=== PATIENT | male | born 1960 | race Caucasian/White ===

== ENCOUNTER → 2017-01-22 | Outpatient (CLI) | payer OTHER ==
[2017-01-22 10:27] LABS: BASO # 0.1 10*3/uL (0.0-0.1); BASO % 0.5 % (0.0-1.0); EOS # 0.1 10*3/uL (0.0-0.4); EOS % 0.9 % (1.0-4.0); HEMATOCRIT 51.9 % (42.0-52.0); IG # 0.1 10*3/uL (0.0-0.1); LYMPH # 1.9 10*3/uL (1.3-4.4); LYMPH % 19.8 % (27.0-41.0); MEAN CELL VOLUME 87.4 fl (80.0-94.0); MEAN CORPUSCULAR HGB 28.6 pg (27.0-31.0); MEAN CORPUSCULAR HGB CONC 32.8 g/dl (33.0-37.0); MEAN PLATELET VOLUME 11.3 fl (9.6-12.3); MONO % 10.7 % (3.0-9.0); NEUT # 6.4 10*3/uL (2.3-7.9); NEUT % 67.4 % (47.0-73.0); PLATELET COUNT AUTOMATED 253 10*3/uL (130-400); RED BLOOD COUNT 5.94 10*6/uL (4.50-5.90); RED CELL DISTRI WIDTH 12.5 % (0-14.5); WHITE BLOOD COUNT 9.5 10*3/uL (4.8-10.8)
[2017-01-22 11:08] LABS: ALBUMIN 3.6 gm/dl (3.1-4.5); BILIRUBIN, TOTAL 0.4 mg/dl (0.2-1.0); BUN 13 mg/dl (7-24); CARBON DIOXIDE 31 mmol/L (21-32); CHLORIDE 94 mmol/L (98-107); EST GLOM FILT AFRICAN AMERICAN > 60 ml/min; GLUCOSE 403 mg/dL (65-99); POTASSIUM 4.3 mmol/L (3.5-5.1); SGOT/AST 18 IU/L (3-35); SGPT/ALT 37 U/L (12-78); SODIUM 132 mmol/L (136-145); TOTAL PROTEIN 8.1 gm/dL (6.4-8.2); TRIGLYCERIDES 499 mg/dl (<150)
[2017-01-22 11:22] LABS: ALKALINE PHOSPHATASE 166 U/L (45-117); CHOLESTEROL 541 mg/dL (<200); HDL CHOLESTEROL 44 mg/dl (40-60)
[2017-01-22 13:11] LABS: HEMOGLOBIN A1c > 16.0 % (4.8-5.6)
== END | disposition home or self-care (01) ==
LOC: LAB 09:45
PROVIDERS: Family Medicine
DX: E11.9 Type 2 diabetes mellitus without complications (principal); E55.9 Vitamin D deficiency, unspecified; E78.5 Hyperlipidemia, unspecified

== ENCOUNTER → 2017-02-14 | Outpatient (CLI) | payer OTHER | END | disposition home or self-care (01) | LOC: CARD 10:30 | DX: I25.2 Old myocardial infarction (principal); R60.0 Localized edema; R07.9 Chest pain, unspecified; I34.0 Nonrheumatic mitral (valve) insufficiency; I07.1 Rheumatic tricuspid insufficiency ==

== ENCOUNTER → 2017-03-19 | Outpatient (CLI) | payer OTHER ==
--- NOTE | ~2017-03-19 | PF ---
[place], [place] PULMONARY FUNCTION TEST [id number] UNIT #: [id number] ROOM: DOCTOR: ANDRADE ROBIN MD,BEVERLY BIRTHDATE: [birth year] DOS: 03/19/2017 ORDERED BY: Dennise Saeed DO HISTORY: The patient was recorded as a 56-year-old male, height is 70 inches, weight is 210 pounds. The patient was reported diagnosis of COPD. Symptoms of dyspnea with severe exertion with productive cough and frequent wheezing was reported. The patient was noted with history of tobacco use, 1.5 packs of cigarettes per day for the past 36 years. SPIROMETRY: The FVC was recorded 3.74 liters as 76% predicted value, mildly decreased with minimal improvement occurred post-bronchodilator test, did not meet the criteria for the ATS improvement. FEV1 was noted 2.5 liters as 59% of predicted value, moderately decreased for the patient. Minimal improvement occurred post-bronchodilator test does not meet the criteria. He has improvement of significant reversibility after bronchodilators. Ratio of FEV1/FVC was recorded as 60%. The patient's lung volumes, thoracic gas volume recorded 109%, residual 136%, total lung capacity 86%. RV/TLC ratio was noted at 161%. The lung volumes suggestive of moderate air trapping secondary to obstructive lung disease. The patient's lung diffusion recorded 92%. The patient's airway resistance and passive conductance were noted abnormal with partial improvement occurred post-bronchodilator test. FINAL IMPRESSION: The tests were noted with finding consistent with moderate COPD for this patient as well. Clinical correlation would be advised. BEVERLY ZAFAR MD CM:PFREPORT:PULMONARY FUNCTION TEST [id number] BEVERLY ROBIN MD
== END | disposition home or self-care (01) ==
LOC: CP 08:31
DX: J44.9 Chronic obstructive pulmonary disease, unspecified (principal)

== ENCOUNTER → 2017-10-30 | Outpatient (CLI) | payer OTHER ==
[2017-10-30 10:12] LABS: BILIRUBIN 1+ (NEGATIVE); BLOOD NEGATIVE (NEGATIVE); CLARITY SL CLOUDY (CLEAR); COLOR YELLOW (YELLOW); GLUCOSE NEGATIVE (NEGATIVE); KETONE 1+ (NEGATIVE); LEUKO ESTERASE NEGATIVE (NEGATIVE); NITRITE NEGATIVE (NEGATIVE); PH 5.5 (5.0-9.0); SPECIFIC GRAVITY >= 1.030 (1.005-1.030); UROBILINOGEN 0.2 E.U./dl (0.2-1.0)
[2017-10-30 10:18] LABS: BACTERIA 1+
[2017-10-30 10:44] LABS: ALBUMIN 3.6 gm/dl (3.1-4.5); ALKALINE PHOSPHATASE 78 U/L (45-117); BILIRUBIN, DIRECT < 0.1 mg/dL (0.0-0.2); BUN 12 mg/dl (7-24); CHLORIDE 106 mmol/L (98-107); CHOLESTEROL 293 mg/dL (<200); CREATININE 0.83 mg/dL (0.70-1.30); HDL CHOLESTEROL 46 mg/dl (40-60); IRON 31 ug/dL (65-175); LDL CHOLESTEROL 217 mg/dL (9-159); POTASSIUM 3.8 mmol/L (3.5-5.1); SGOT/AST 14 IU/L (3-35); SGPT/ALT 28 U/L (12-78); SODIUM 138 mmol/L (136-145); TOTAL IRON BINDING CAPACITY 334 ug/dl (250-450); TOTAL PROTEIN 7.2 gm/dL (6.4-8.2); TRIGLYCERIDES 148 mg/dl (<150); VLDL CHOLESTEROL 30 mg/dL (6-40)
[2017-10-30 11:25] LABS: TESTOSTERONE, TOTAL 257 ng/dL (241-827); VITAMIN D, 25-HYDROXY 53.6 ng/mL (30-100)
== END | disposition home or self-care (01) ==
LOC: LAB 09:44
PROVIDERS: Internal Medicine
DX: E11.40 Type 2 diabetes mellitus with diabetic neuropathy, unspecified (principal); E11.65 Type 2 diabetes mellitus with hyperglycemia; E55.9 Vitamin D deficiency, unspecified; E78.5 Hyperlipidemia, unspecified; N40.0 Benign prostatic hyperplasia without lower urinary tract symptoms

== ENCOUNTER → 2018-02-05 | Outpatient (CLI) | payer OTHER ==
[2018-02-05 10:38] LABS: BILIRUBIN NEGATIVE (NEGATIVE); BLOOD NEGATIVE (NEGATIVE); CLARITY SL CLOUDY (CLEAR); COLOR YELLOW (YELLOW); GLUCOSE 3+ (NEGATIVE); KETONE 1+ (NEGATIVE); LEUKO ESTERASE NEGATIVE (NEGATIVE); NITRITE NEGATIVE (NEGATIVE); PH 5.5 (5.0-9.0); SPECIFIC GRAVITY >= 1.030 (1.005-1.030); UROBILINOGEN 0.2 E.U./dl (0.2-1.0)
[2018-02-05 10:45] LABS: MUCOUS 2+
[2018-02-05 11:03] LABS: BUN 12 mg/dl (7-24); CHLORIDE 105 mmol/L (98-107); CHOLESTEROL 183 mg/dL (<200); CREATININE 0.77 mg/dL (0.70-1.30); HDL CHOLESTEROL 39 mg/dl (40-60); LDL CHOLESTEROL 126 mg/dL (9-159); POTASSIUM 4.1 mmol/L (3.5-5.1); SODIUM 140 mmol/L (136-145); TRIGLYCERIDES 90 mg/dl (<150); VLDL CHOLESTEROL 18 mg/dL (6-40)
[2018-02-05 12:04] LABS: VITAMIN D, 25-HYDROXY 73.1 ng/mL (30-100)
== END | disposition home or self-care (01) ==
LOC: LAB 09:58
PROVIDERS: Internal Medicine
DX: E78.5 Hyperlipidemia, unspecified (principal); E11.65 Type 2 diabetes mellitus with hyperglycemia; E55.9 Vitamin D deficiency, unspecified; E11.40 Type 2 diabetes mellitus with diabetic neuropathy, unspecified

== ENCOUNTER 2018-03-18 08:02 | Emergency (ER) | payer OTHER ==
[~2018-03-18] VITALS: Ht 177.8 cm; Wt 89.4 kg
[2018-03-18 09:01] LABS: BUN 11 mg/dl (7-24); CHLORIDE 100 mmol/L (98-107); CREATININE 0.81 mg/dL (0.70-1.30); POTASSIUM 4.4 mmol/L (3.5-5.1); SODIUM 135 mmol/L (136-145)
[2018-03-18 09:04] LABS: TROPONIN I < 0.015 ng/ml (<0.045)
== END 2018-03-18 09:20 | disposition home or self-care (01) ==
LOC: ED 08:02
PROVIDERS: Emergency Medicine
DX: M54.6 Pain in thoracic spine (principal); X50.1XXA Overexertion from prolonged static or awkward postures, initial encounter; Y93.89 Activity, other specified; Y92.69 Other specified industrial and construction area as the place of occurrence of the external cause; Y99.9 Unspecified external cause status

== ENCOUNTER 2018-04-21 11:22 | Emergency (ER) | payer OTHER ==
[~2018-04-21] VITALS: Ht 175.2 cm; Wt 89.4 kg
== END 2018-04-21 12:37 | disposition home or self-care (01) ==
LOC: ED 11:22
DX: S99.921A Unspecified injury of right foot, initial encounter (principal); F17.200 Nicotine dependence, unspecified, uncomplicated; W22.8XXA Striking against or struck by other objects, initial encounter; Y93.89 Activity, other specified; Y92.89 Other specified places as the place of occurrence of the external cause; Y99.8 Other external cause status

== ENCOUNTER → 2018-05-27 | Outpatient (CLI) | payer OTHER ==
[2018-05-27 11:09] LABS: BILIRUBIN NEGATIVE (NEGATIVE); BLOOD NEGATIVE (NEGATIVE); CLARITY CLEAR (CLEAR); COLOR YELLOW (YELLOW); GLUCOSE NEGATIVE (NEGATIVE); KETONE NEGATIVE (NEGATIVE); LEUKO ESTERASE NEGATIVE (NEGATIVE); NITRITE NEGATIVE (NEGATIVE); PH 5.5 (5.0-9.0); UROBILINOGEN 0.2 E.U./dl (0.2-1.0)
[2018-05-27 11:25] LABS: EPITHELIAL CELLS 0-2; RBC 0-2 rbc/hpf (0-2)
[2018-05-27 11:29] LABS: ALBUMIN 3.3 gm/dl (3.1-4.5); ALKALINE PHOSPHATASE 94 U/L (45-117); BILIRUBIN, DIRECT < 0.1 mg/dL (0.0-0.2); BUN 9 mg/dl (7-24); CHLORIDE 105 mmol/L (98-107); CHOLESTEROL 406 mg/dL (<200); CREATININE 0.74 mg/dL (0.70-1.30); HDL CHOLESTEROL 39 mg/dl (40-60); LDL CHOLESTEROL 319 mg/dL (9-159); POTASSIUM 4.5 mmol/L (3.5-5.1); SGOT/AST 15 IU/L (3-35); SGPT/ALT 27 U/L (12-78); SODIUM 138 mmol/L (136-145); TOTAL PROTEIN 6.6 gm/dL (6.4-8.2); TRIGLYCERIDES 239 mg/dl (<150); VLDL CHOLESTEROL 48 mg/dL (6-40)
[2018-05-27 12:11] LABS: VITAMIN D, 25-HYDROXY 25.3 ng/mL (30-100)
== END | disposition home or self-care (01) ==
LOC: LAB 10:01
PROVIDERS: Internal Medicine
DX: E11.65 Type 2 diabetes mellitus with hyperglycemia (principal); E29.1 Testicular hypofunction; E55.9 Vitamin D deficiency, unspecified

== ENCOUNTER → 2018-10-01 | Outpatient (CLI) | payer OTHER ==
[~2018-10-01] MED LIST: GLIMEPIRIDE4 M1 PO; METFORMIN HYD1000 MG PO; VICTOZA 3-PAK6 MG/ML SC
[2018-10-01 11:58] LABS: BILIRUBIN NEGATIVE (NEGATIVE); BLOOD NEGATIVE (NEGATIVE); CLARITY SL CLOUDY (CLEAR); COLOR YELLOW (YELLOW); GLUCOSE 3+ (NEGATIVE); KETONE NEGATIVE (NEGATIVE); LEUKO ESTERASE NEGATIVE (NEGATIVE); NITRITE NEGATIVE (NEGATIVE); PH 5.5 (5.0-9.0); SPECIFIC GRAVITY 1.025 (1.005-1.030); UROBILINOGEN 0.2 E.U./dl (0.2-1.0)
[2018-10-01 12:13] LABS: BACTERIA TRACE; MUCOUS 1+
[2018-10-01 12:30] LABS: ALBUMIN 3.4 gm/dl (3.1-4.5); ALKALINE PHOSPHATASE 94 U/L (45-117); BILIRUBIN, DIRECT 0.1 mg/dL (0.0-0.2); BUN 11 mg/dl (7-24); CHLORIDE 104 mmol/L (98-107); CHOLESTEROL 156 mg/dL (<200); CREATININE 0.76 mg/dL (0.70-1.30); HDL CHOLESTEROL 37 mg/dl (40-60); LDL CHOLESTEROL 86 mg/dL (9-159); POTASSIUM 4.2 mmol/L (3.5-5.1); SGOT/AST 29 IU/L (3-35); SGPT/ALT 41 U/L (12-78); SODIUM 136 mmol/L (136-145); TOTAL PROTEIN 7.1 gm/dL (6.4-8.2); TRIGLYCERIDES 163 mg/dl (<150); VLDL CHOLESTEROL 33 mg/dL (6-40)
[2018-10-01 13:08] LABS: VITAMIN D, 25-HYDROXY 44.6 ng/mL (30-100)
== END | disposition home or self-care (01) ==
LOC: LAB 11:31
PROVIDERS: Internal Medicine
DX: E11.40 Type 2 diabetes mellitus with diabetic neuropathy, unspecified (principal); E11.65 Type 2 diabetes mellitus with hyperglycemia; E55.9 Vitamin D deficiency, unspecified; E78.5 Hyperlipidemia, unspecified

== ENCOUNTER → 2019-01-07 | Outpatient (CLI) | payer OTHER ==
[2019-01-07 10:51] LABS: BILIRUBIN NEGATIVE (NEGATIVE); BLOOD NEGATIVE (NEGATIVE); CLARITY SL CLOUDY (CLEAR); COLOR YELLOW (YELLOW); GLUCOSE 3+ (NEGATIVE); KETONE NEGATIVE (NEGATIVE); LEUKO ESTERASE NEGATIVE (NEGATIVE); NITRITE NEGATIVE (NEGATIVE); PH 5.5 (5.0-9.0); UROBILINOGEN 0.2 E.U./dl (0.2-1.0)
[2019-01-07 11:20] LABS: ALBUMIN 3.5 gm/dl (3.1-4.5); ALKALINE PHOSPHATASE 85 U/L (45-117); BILIRUBIN, DIRECT 0.1 mg/dL (0.0-0.2); BUN 13 mg/dl (7-24); CHLORIDE 105 mmol/L (98-107); CHOLESTEROL 113 mg/dL (<200); HDL CHOLESTEROL 38 mg/dl (40-60); LDL CHOLESTEROL 59 mg/dL (9-159); POTASSIUM 4.2 mmol/L (3.5-5.1); SGOT/AST 43 IU/L (3-35); SGPT/ALT 86 U/L (12-78); SODIUM 139 mmol/L (136-145); TOTAL PROTEIN 7.2 gm/dL (6.4-8.2); TRIGLYCERIDES 80 mg/dl (<150); VLDL CHOLESTEROL 16 mg/dL (6-40)
[2019-01-07 13:19] LABS: VITAMIN D, 25-HYDROXY 58.9 ng/mL (30-100)
[2019-01-07 13:27] LABS: BACTERIA 2+; COARSE GRANULAR CAST 20-30; EPITHELIAL CELLS 30-40; WBC 16-20 wbc/hpf (0-5)
== END | disposition home or self-care (01) ==
LOC: LAB 10:21
PROVIDERS: Internal Medicine
DX: E11.65 Type 2 diabetes mellitus with hyperglycemia (principal); E78.5 Hyperlipidemia, unspecified; E55.9 Vitamin D deficiency, unspecified

== ENCOUNTER → 2019-06-17 | Outpatient (CLI) | payer OTHER ==
[2019-06-17 11:30] LABS: BILIRUBIN NEGATIVE (NEGATIVE); BLOOD NEGATIVE (NEGATIVE); CLARITY CLEAR (CLEAR); COLOR YELLOW (YELLOW); GLUCOSE 3+ (NEGATIVE); KETONE NEGATIVE (NEGATIVE); LEUKO ESTERASE NEGATIVE (NEGATIVE); NITRITE NEGATIVE (NEGATIVE); SPECIFIC GRAVITY 1.015 (1.005-1.030); UROBILINOGEN 0.2 E.U./dl (0.2-1.0)
[2019-06-17 11:59] LABS: CHLORIDE 108 mmol/L (98-107); SODIUM 139 mmol/L (136-145)
[2019-06-17 12:19] LABS: ALBUMIN 3.5 gm/dl (3.1-4.5); ALKALINE PHOSPHATASE 83 U/L (45-117); BILIRUBIN, DIRECT < 0.1 mg/dL (0.0-0.2); BUN 10 mg/dl (7-24); CHOLESTEROL 140 mg/dL (<200); CREATININE 0.77 mg/dL (0.70-1.30); HDL CHOLESTEROL 41 mg/dl (40-60); LDL CHOLESTEROL 80 mg/dL (9-159); SGOT/AST 25 IU/L (3-35); SGPT/ALT 43 U/L (12-78); TOTAL PROTEIN 6.6 gm/dL (6.4-8.2); TRIGLYCERIDES 95 mg/dl (<150); VLDL CHOLESTEROL 19 mg/dL (6-40)
[2019-06-17 12:30] LABS: VITAMIN D, 25-HYDROXY 44.7 ng/mL (30-100)
== END | disposition home or self-care (01) ==
LOC: LAB 10:50
PROVIDERS: Internal Medicine
DX: E11.40 Type 2 diabetes mellitus with diabetic neuropathy, unspecified (principal); E11.65 Type 2 diabetes mellitus with hyperglycemia; E78.5 Hyperlipidemia, unspecified; E55.9 Vitamin D deficiency, unspecified

== ENCOUNTER → 2019-08-01 | Outpatient (CLI) | payer OTHER | END | disposition home or self-care (01) | LOC: US 09:30 | DX: N40.0 Benign prostatic hyperplasia without lower urinary tract symptoms (principal); R94.5 Abnormal results of liver function studies; M19.012 Primary osteoarthritis, left shoulder; I10 Essential (primary) hypertension; E11.9 Type 2 diabetes mellitus without complications; E78.5 Hyperlipidemia, unspecified ==

== ENCOUNTER → 2019-11-11 | Outpatient (CLI) | payer OTHER ==
[2019-11-11 14:05] LABS: ALBUMIN 3.9 gm/dl (3.1-4.5); ALKALINE PHOSPHATASE 83 U/L (45-117); BILIRUBIN, DIRECT < 0.1 mg/dL (0.0-0.2); BUN 12 mg/dl (7-24); CHLORIDE 108 mmol/L (98-107); CHOLESTEROL 183 mg/dL (<200); CREATININE 0.89 mg/dL (0.70-1.30); HDL CHOLESTEROL 44 mg/dl (40-60); LDL CHOLESTEROL 105 mg/dL (9-159); POTASSIUM 4.3 mmol/L (3.5-5.1); SGOT/AST 17 IU/L (3-35); SGPT/ALT 35 U/L (12-78); SODIUM 139 mmol/L (136-145); TRIGLYCERIDES 169 mg/dl (<150); VLDL CHOLESTEROL 34 mg/dL (6-40)
[2019-11-11 14:20] LABS: BACTERIA TRACE; BILIRUBIN NEGATIVE (NEGATIVE); BLOOD NEGATIVE (NEGATIVE); CLARITY CLEAR (CLEAR); COLOR YELLOW (YELLOW); EPITHELIAL CELLS 0-2; GLUCOSE 3+ (NEGATIVE); KETONE 1+ (NEGATIVE); LEUKO ESTERASE NEGATIVE (NEGATIVE); MUCOUS 1+; NITRITE NEGATIVE (NEGATIVE); UROBILINOGEN 0.2 E.U./dl (0.2-1.0)
[2019-11-11 15:49] LABS: VITAMIN D, 25-HYDROXY 38.7 ng/mL (30-100)
== END | disposition home or self-care (01) ==
LOC: LAB 13:12
PROVIDERS: Internal Medicine
DX: N40.0 Benign prostatic hyperplasia without lower urinary tract symptoms (principal); E29.1 Testicular hypofunction; E11.65 Type 2 diabetes mellitus with hyperglycemia; E55.9 Vitamin D deficiency, unspecified; E11.40 Type 2 diabetes mellitus with diabetic neuropathy, unspecified

== ENCOUNTER → 2020-04-01 | Outpatient (CLI) | payer OTHER ==
[2020-04-01 11:11] LABS: ALBUMIN 3.4 gm/dl (3.1-4.5); ALKALINE PHOSPHATASE 75 U/L (45-117); BILIRUBIN, DIRECT < 0.1 mg/dL (0.0-0.2); BUN 10 mg/dl (7-24); CHLORIDE 109 mmol/L (98-107); CHOLESTEROL 202 mg/dL (<200); CREATININE 0.83 mg/dL (0.70-1.30); HDL CHOLESTEROL 41 mg/dl (40-60); LDL CHOLESTEROL 142 mg/dL (9-159); POTASSIUM 4.4 mmol/L (3.5-5.1); SGOT/AST 18 IU/L (3-35); SGPT/ALT 27 U/L (12-78); SODIUM 140 mmol/L (136-145); TOTAL PROTEIN 6.6 gm/dL (6.4-8.2); TRIGLYCERIDES 97 mg/dl (<150); VLDL CHOLESTEROL 19 mg/dL (6-40)
[2020-04-01 11:52] LABS: BILIRUBIN NEGATIVE (NEGATIVE); BLOOD NEGATIVE (NEGATIVE); CLARITY CLEAR (CLEAR); COLOR YELLOW (YELLOW); GLUCOSE 3+ (NEGATIVE); KETONE NEGATIVE (NEGATIVE); SPECIFIC GRAVITY 1.025 (1.005-1.030)
[2020-04-01 11:53] LABS: BACTERIA TRACE; LEUKO ESTERASE NEGATIVE (NEGATIVE); MUCOUS TRACE; NITRITE NEGATIVE (NEGATIVE); UROBILINOGEN 0.2 E.U./dl (0.2-1.0)
[2020-04-01 12:00] LABS: VITAMIN D, 25-HYDROXY 51.2 ng/mL (30-100)
== END | disposition home or self-care (01) ==
LOC: LAB 10:06
PROVIDERS: Internal Medicine
DX: E11.65 Type 2 diabetes mellitus with hyperglycemia (principal); E78.5 Hyperlipidemia, unspecified; E55.9 Vitamin D deficiency, unspecified; E11.40 Type 2 diabetes mellitus with diabetic neuropathy, unspecified

== ENCOUNTER 2020-06-14 10:53 | Inpatient (IN) | payer OTHER ==
[~2020-06-14] VITALS: Ht 172.7 cm; Wt 86.1 kg
--- NOTE | 2020-06-14 11:16 | NUR ---
PATIENT STATES THAT HE TOOK TYLENOL WITH CODEINE AT 0700, AND ALL THROUGH THE NIGHT.
[2020-06-14 11:21] VITALS: BP 123/76
--- NOTE | 2020-06-14 11:56 | NUR ---
PT TRANSPORTED TO CT.
--- NOTE | 2020-06-14 12:14 | NUR ---
PT BACK TO ROOM FROM CT.
--- NOTE | 2020-06-14 12:39 | NUR ---
PATIENT STATES THAT PAIN MEDICATION HAS BEEN EFFECTIVE, RESTING COMFORTABLY IN BED WITH NO COMPLAINTS. WILL CONTINUIE TO MONITOR.
--- NOTE | 2020-06-14 13:05 | NUR ---
PATIENT PROVIDED WITH URINAL.
[2020-06-14] MEDS ORDERED: NORCO 5-325 TA1 EACH PO (13:39)
--- NOTE | 2020-06-14 13:41 | NUR ---
PATIENT PROVIDED WITH LEFT KNEE IMMOBILIZER AND CRUTCHES.
--- NOTE | 2020-06-14 17:20 | NUR ---
ATTEMPTED TO CALL REPORT. DID NOT ANSWER.
[2020-06-14 18:25] VITALS: BP 127/73
--- NOTE | 2020-06-14 18:25 | NUR ---
Time: 1624 A 59 year old MALE admitted to under services of GURJIT BEY DO. Pt. arrived via ambulance from ER. Chief complaint: INABILITY TO AMBULATE.. ADY ZARATE
[2020-06-14] MEDS ORDERED: PAROXETINE10 MG PO (19:05)
[2020-06-14] MEDS ORDERED: ROSUVASTATIN CA40 MG PO (19:06)
[2020-06-14] MEDS ORDERED: CHILDREN'S CLEA10 MG PO (19:09)
[2020-06-14] MEDS ORDERED: LISINOPRIL2.5 MG PO (19:10)
[2020-06-14] MEDS ORDERED: ASPIRIN CHEWABL81 MG PO (19:10)
[2020-06-14 20:00] VITALS: BP 114/65
[2020-06-14] MEDS ORDERED: COQ-10100 MG PO (20:10)
[2020-06-14] MEDS ORDERED: JARDIANCE25 MG PO (20:11)
[2020-06-14] MEDS ORDERED: ZETIA10 MG PO (20:13)
--- NOTE | 2020-06-14 20:31 | NUR ---
Pt instructed on incentive spirometer. Encouraged 10 breaths every hour.
[2020-06-14] MEDS ORDERED: SUPER-D3+ SOFT1 EACH PO (20:34)
[2020-06-14] MEDS ORDERED: TOPROL XL25 MG PO (20:35)
[2020-06-14] MEDS ORDERED: OZEMPIC1 MG/0.75 SQ (20:35)
[2020-06-14] MEDS ORDERED: FUROSEMIDE20 M1 PO (20:36)
[2020-06-14] MEDS ORDERED: POTASSIUM CHLO10 MEQ PO (20:37)
[2020-06-14] MEDS ORDERED: FLUTICASONE PRO15 G1 T (20:38)
[2020-06-14] MEDS ORDERED: VENT7GM INH (20:38)
--- NOTE | 2020-06-14 20:40 | NUR ---
CALLED DR. MANCIA MADE AWARE MEDICATION NEED ORDERED.
--- NOTE | 2020-06-14 21:43 | NUR ---
RESTING IN BED. BSG-[id number], SEE EMAR. DENIES PAIN AT THIS TIME. EXPLAINED INCENTIVE SPIROMETER, VOICED USING. CALL LIGHT IN REACH. SEE SHIFT ASSESSMENT.
[2020-06-14] MEDS ORDERED: ADDERALL 10 MG10 MG PO (22:57)
--- NOTE | 2020-06-14 22:58 | NUR ---
SLEEPING IN BED. RESP-EASY AND REGULAR. CALL LIGHT IN REACH.
[2020-06-15] VITALS: BP 126/77
--- NOTE | 2020-06-15 00:13 | NUR ---
MEDICATED WITH NORCO PO PER PRN ORDER, SEE EMAR. FOR C/O R&L LOWER CHEST RIB AREA PAIN, MOSTLY ON LEFT SIDE. RATES PAIN 5 ON PAIN SCALE 0-10. PT STATES HE MOVED THE WRONG WAY. CALL LIGHT IN REACH.
--- NOTE | 2020-06-15 01:10 | NUR ---
PT RESTING IN BED. RESP-EASY AND REGULAR. STATES MEDICATION EFFECTIVE. CALL LIGHT IN REACH.
--- NOTE | 2020-06-15 04:13 | NUR ---
PT C/O LEFT KNEE AND LEFT CHEST/RIB AREA PAIN, RATES PAIN 2 ON PAIN SCALE 0-10. MEDICATED WITH NORCO PO PER PRN ORDER, SEE EMAR. CALL LIGHT IN REACH.
--- NOTE | 2020-06-15 05:00 | NUR ---
PT RESTING IN BED WITH EYES CLOSED. RESP-EASY AND REGULAR. MEDICATION SEEMS TO BE EFFECTIVE. CALL LIGHT IN REACH.
[2020-06-15 06:49] LABS: HEMATOCRIT 45.9 % (42.0-52.0); MEAN CORPUSCULAR HGB 29.7 pg (27.0-31.0); MEAN CORPUSCULAR HGB CONC 32.2 g/dl (33.0-37.0); MEAN PLATELET VOLUME 10.5 fl (9.6-12.3); PLATELET COUNT AUTOMATED 159 10*3/uL (130-400); RED BLOOD COUNT 4.99 10*6/uL (4.50-5.90); RED CELL DISTRI WIDTH 13.4 % (0-14.5); WHITE BLOOD COUNT 10.1 10*3/uL (4.8-10.8)
[2020-06-15 06:59] LABS: ALBUMIN 2.8 gm/dl (3.1-4.5); ALKALINE PHOSPHATASE 73 U/L (45-117); BUN 13 mg/dl (7-24); CHLORIDE 105 mmol/L (98-107); CREATININE 0.81 mg/dL (0.70-1.30); FREE T4 1.13 ng/dl (0.76-1.46); POTASSIUM 3.9 mmol/L (3.5-5.1); SGOT/AST 18 IU/L (3-35); SGPT/ALT 25 U/L (12-78); SODIUM 135 mmol/L (136-145); TOTAL PROTEIN 6.5 gm/dL (6.4-8.2)
[2020-06-15 07:31] LABS: BASOPHILS 3 % (0-1); PLATELET SUFFICIENCY NORMAL (NORMAL); TOTAL CELLS COUNTED 100 #CELLS
--- NOTE | 2020-06-15 07:31 | NUR ---
Shift chart check completed.
--- NOTE | 2020-06-15 07:41 | NUR ---
PHYSICAL THERAPY Screen and PT eval received will follow thank you Latrice Ortiz PT
[2020-06-15 08:00] VITALS: BP 121/77
--- NOTE | 2020-06-15 08:02 | NUR ---
Occupational therapy order and nursing screen received. Will follow up with patient for completion of an OT evaluation. Thank you. Mer Batista, OTR/L
--- NOTE | 2020-06-15 10:59 | NUR ---
PT ASSESSED FOR HOME OXYGEN. PT DID NOT QUALIFY PT AT REST SPO2 99% RA, HR 75, RR 16, B/P 121/77 PT AMBULATED SPO2 93-95% RA PT AT REST SPO2 98% RA, HR 72, RR 16, B/P 146/82 NOTIFIED AND RN NOTIFIED
--- NOTE | 2020-06-15 11:04 | NUR ---
In to see patient to discuss options of rehab facilities that are in network with his [place] [employer] insurance. [facility] [place], [facility] are out of network. [facility] is also out of network. [facility] is the only local facility that is in network. Patient stating he has never been there and didn't know what it was like, but asked about policies regarding Covid. He was told there is a 14 day quarantine in his room when he arrives. Patient immediately stated he is NOT going to a rehab facility, he will go home. When asked about VNA services he called his mother and asked which facility she had when she was under VNA. He stated [facility]. Will need home health order for all services prior to discharge.
[2020-06-15 12:00] VITALS: BP 124/72
--- NOTE | 2020-06-15 13:06 | NUR ---
NORCO GIVEN FOR PAIN NING WITH MOVEMENT - PER PT 07/24 WITH MOVEMENT..2/10 AT REST... ONCE AGAIN ENCOURAGED IS
--- NOTE | 2020-06-15 13:50 | NUR ---
Occupational Therapy evaluation completed on four with full evaluation to follow. Recommend occupational therapy per plan of care and SNF upon discharge. If refused, home with full and 07/05 supervision assist. Thank you for this referral. Mer Batista OTR/L
[2020-06-15 16:00] VITALS: BP 124/74
--- NOTE | 2020-06-15 16:13 | NUR ---
PHYSICAL THERAPY Physical Therapy evaluation completed on 4th floor with full evaluation to follow. Recommend physical therapy per plan of care and SNF upon discharge if refused pt will require HH w 24hr care/supervison. Spoke at length w pt regarding recommendation for rehab. Thank you for this referral. Dwayne Anna SPT Latrice Ortiz PT
--- NOTE | 2020-06-15 17:58 | NUR ---
MEDICATED WITH PO NORCO ORDERED PER PT REQUEST FOR C/O GENERALIZED PAIN RATED 5/10.
[2020-06-15 20:00] VITALS: BP 122/78
--- NOTE | 2020-06-15 20:50 | NUR ---
PT RESTING IN BED WITH HOB ELEVATED. RESP-EASY AND REGULAR. C/O CONSTIPATION. MEDICATED WITH DUCOLAX PO PER PRN ORDER, SEE EMAR. CALL LIGHT IN REACH.
--- NOTE | 2020-06-15 22:18 | NUR ---
C/O ACHING ALL OVER, RATES PAIN 4 ON PAIN SCALE 0-10. MEDICATED WITH NORCO PO PER PRN ORDER, SEE EMAR. CALL LIGHT INR EACH.
--- NOTE | 2020-06-15 23:10 | NUR ---
PT RESTING IN BED STATES PAIN MEDICATION HELPS. CALL LIGHT IN REACH.
[2020-06-16] VITALS: BP 124/73
--- NOTE | 2020-06-16 02:01 | NUR ---
PT C/O LEFT SIDE/RIB AND LEFT LEG PAIN, RATES PAIN 7 ON PAIN SCALE 0-10. MEDICATED WITH NORCO PO PER PRN ORDER, SEE EMAR. CALL LIGHT IN REACH.
--- NOTE | 2020-06-16 03:00 | NUR ---
PT RESTING IN BED WITH EYES CLOSED. MEDICATION SEEMS TO BE EFFECTIVE. RESP-EASY AND REGULAR. CALL LIGHT IN REACH.
--- NOTE | 2020-06-16 06:04 | NUR ---
RESTING IN BED. BSG-[id number], SEE EMAR. CALL LIGHT IN REACH.
--- NOTE | 2020-06-16 07:03 | NUR ---
Face sheet faxed to [facility] to check for covered VNA services. Waiting on reply.
[2020-06-16 08:00] VITALS: BP 126/80
--- NOTE | 2020-06-16 08:50 | NUR ---
OT NOTE Pt was seen this A.M. 1:1 for 20 minute OT session. Upon arrival pt was supine in bed. Pt identified by name and and had complaints of 7/10 B rib pain and L knee pain. Prior to start of activity pt was able to verbalize with 100% accuracy his NWB to LLE. Pt transferred supine to sit EOB with CGA for safety. Sit to stand completed from bed level with CGA and use of w/w for UE support. Challenged pt's static standing tolerance needed for increased I in self care tasks and functional transfers, pt was able to tolerate aprox 3 minutes at a time before sitting due to fatigue. Functional mobility was then completed to the bathroom with CGA and use of w/w with constant verbal prompts to maintain NWB to LLE due to being aprox 75% compliant. Pt required two standing rest breaks throughout due to fatigue. Attempted to transfer on to standard commode however pt declined due to fear of low surface and increased pain with low transfers. Functional mobility was then completed back to the room where he transferred on/off elevated bedside commode with CGA for safety. Pt then transferred back into bed sit to supine with SBA. There he was left with call light in hand, tray table in place, and bed alarm activated for safety. Continue with rec D/C plan to SNF. LILIANA Hinojosa/Carlos Alberto
--- NOTE | 2020-06-16 08:51 | NUR ---
ADRIAN called and stated patients [employer] insurance will cover home health with a visiting nurse, PT/OT and aides. She stated the home health aides will have to be preauthorized by insurance and will not cover a group social worker, but he will have VNA coverage upon discharge.
--- NOTE | 2020-06-16 09:00 | NUR ---
[employer] Worker Conveyor Line in to talk to patient. Patient states lives at home with mom. There are 2 steps in the home. Physician: nikia gonzalez [facility]acy: [facility] Home health services: none Patient's level of ADLs: INDEPENDENT Patient has working utilities: all working DME: walkers Follow-up physician's appointment after d/c: will be made by hospitalist nurse director upon dischage Does patient want to access PORTAL?: no Discharge plan discussed with patient, he states he lives at home with his mom, he is her caregiver, he was independent in adls and ambulation until his fall, he is having difficulty with ambulation at this time, discussed with him a short term longterm for 5 days of rehab and 24 hour care, he stated he didn't want to go to a SNF due to being quarantined in his room the entire time of rehab. he stated he felt he was improving each day and would be able to return home with home health, case management will send home health order when patient is dischaged, case management will follow. ELI CASON
--- NOTE | 2020-06-16 09:19 | NUR ---
PHYSICAL THERAPY TREATMENT TIME: OUT 8:42 AM 20 MINUTES TOTAL PRESENTATION: ORTHO Patient has report of 7/10 pain in the Bilateral Ribs and L knee. Patient in supine in bed Head of bed elevated Bed alarm off No spO2 No IVs COMPLAINTS: 7/10 PAIN in the Gerardo ribs and L knee TRANSFERS: Supine to sitting on EOB: SBA Sitting on EOB: SBA STS from EOB: SBA STS from bedside commode: SBA Transfer back to supine in bed with SBA TREATMENT: Patient does not want to wear knee immobilizer for therapy session. Gait with Wh Walker: Close Supervision Gait distance: 80' x 1 No LOB Moderate increased pain in ribs and L knee 75% compliant with NON-WT bearing on the L LE using Wh Walker STATUS: NON- WT BEARING L LE RESPONSE/COMPLAINTS POST TREATMENT: Patient tolerated treatment well PATIENT WITH MODERATE INCREASED PAIN IN THE RIBS and L LE. No LOB with gait CONCLUSION: Patient left in supine Head of bed elevated Call light within reach Tray table near patient Phone near patient JACQUELINE PATEL RENAL DIALYSIS TECHNICIAN
--- NOTE | 2020-06-16 10:39 | NUR ---
PT REQUESTED AND RECEIVED PO NORCO PER PRN ORDER FOR C/O LEFT RIB AND LEFT KNEE PAIN. RATES PAIN 8/10. WILL MONITOR EFFECTIVENESS.
--- NOTE | 2020-06-16 11:04 | NUR ---
Spoke with patient regarding his PCP is currently off on an emergecy leave of absence so his follow up appointment will be made with our resident clinic here at the hospital. I explained where the residency clinic was located and it will just be temporary until his PCP returns. I also told him about his insurance covering home health visiting nurses, PT/OT and it will need to have a preauth just for the school psychometrist assistance. He acknowledged understanding. Patient asked if he would be able to stay here in the hospital one more night. Confirmed with nurse hospitalist patient will not be discharged home today. Patient expressed relief he was able to stay one more night.
--- NOTE | 2020-06-16 11:39 | NUR ---
NORCO RELIEVING PAIN PER PT. WILL CONTINUE TO MONITOR.
[2020-06-16 12:00] VITALS: BP 127/75
--- NOTE | 2020-06-16 13:24 | NUR ---
OT NOTE Pt was laying supine in bed with head elevated, agreeable to 15 minute OT session. Identified by name and date of with left knee pain rated a 2/10 on pain scale. Prior to OT session pt was able to recite NWB precautions. Transfer supine to EOB SBA. Pt was educated on use of sock aide and dressing stick to doff/fady socks. after demonstration pt was able to doff right sock with dressing stick EOB at SBA. Pt was able to then fady sock with sock aide EOB at SBA. SItting balance at good-. SIt-stand from EOB CGA with w/w for UB support. Functional mobility from EOB to bathroom CGA with w/w. transferring on and off elevated commode at CGA with grab bar and w/w for safety and support. Multiple VC to lift left leg when sitting on commode with poor carry over. Pt states "it hurts my knee worse when i straighten it". functional mobility from bathroom to hallway then back to EOB CGA with w/w. Pt maintained 75% of NWB precautions throughout session. Pt was able to situate self back in bed at SBA. Pt left in bed with alarm set and call light in reach. Continue d/c recommended SNF. MOHIT Vivas/LILIANA Cunha/Carlos Alberto
--- NOTE | 2020-06-16 14:13 | NUR ---
PHYSICAL THERAPY TREATMENT TIME: IN 1:10 PM - OUT 1:25 PM 15 MINUTES PRESENTATION: Patient presented in supine in bed Head of bed elevated Bed alarm off No spO2 No IVs Complaints: Minor pain level 2/10 TRANSFERS: Supine to sitting on EOB : SBA SIT on EOB : Supervision STS from EOB : CGA-SBA Stand to sit in chair : SBA STS from low chair: SBA TREATMENT: Gait: with Wh Walker and Close Supervision Gait distance : 60' x 2 with one standing rest break at 60' x 1. RESPONSE TO TREATMENT: Patient had no significant increased pain with gait or transfers Patient had no LOB with gait Patient had no LOB while turning with Walker Patient can perform all transfers with SBA. CONCLUSION: Patient left in supine in bed Head of bed elevated Call light within reach Tray table beside patient JACQUELINE PATEL CRANE OPERATOR
--- NOTE | 2020-06-16 14:30 | NUR ---
PT MEDICATED WITH PO NORCO PER PRN ORDER FOR C/O LEFT RIB PAIN. RATES PAIN 6/10. PAIN INCREASES WITH MOVEMENT. WILL MONITOR EFFECTIVENESS.
--- NOTE | 2020-06-16 15:30 | NUR ---
NORCO RELIEVING PAIN PER PT. WILL CONTINUE TO MONITOR.
[2020-06-16 16:00] VITALS: BP 124/74
--- NOTE | 2020-06-16 16:14 | NUR ---
OCCUPATIONAL THERAPY CO-SIGN I approve of the Occupational Therapy notes written above. MELANY OLIVER, OTR/L
--- NOTE | 2020-06-16 18:41 | NUR ---
PT MEDICATED WITH PO NORCO PER PRN ORDER FOR C/O LEFT RIB/LEFT KNEE PAIN. RATES PAIN 04/23. WILL MONITOR EFFECTIVENESS.
--- NOTE | 2020-06-16 19:00 | NUR ---
ASSUMED CARE FOR THIS PT AT THIS TIME. PT AWAKE IN BED. DENIES PAIN AT PRESENT TIME. SWELLING NOTED TO LLE. LT KNEE BRACE INTACT. BED ALARM ON W/CALL LIGHT IN REACH.
[2020-06-16 20:00] VITALS: BP 129/73
--- NOTE | 2020-06-16 23:15 | NUR ---
PT MEDICATED W/NORCO FOR C/O LLE PAIN 03/24. WILL MONITOR FOR EFFECTIVENESS. CALL LIGHT IN REACH.
[2020-06-17] VITALS: BP 119/73
--- NOTE | 2020-06-17 00:16 | NUR ---
PT RESTING QUIETLY IN BED. NO S/S OF DITRESS NOTED. PRN NORCO EFFECTIVE.
--- NOTE | 2020-06-17 03:56 | NUR ---
PT C/O LT KNEE PAIN 01/22. MEDICATED W/NORCO. WILL MONITOR FOR EFFECTIVENESS.
--- NOTE | 2020-06-17 04:56 | NUR ---
PT STATES PAIN MED WAS EFFECTIVE FOR PAIN RELIEF. RESTING QUIETLY IN BED. BED ALARM ON W/CALL LIGHT IN REACH.
--- NOTE | 2020-06-17 06:55 | NUR ---
D/C PHOTOS TAKEN OF 3 WOUNDS AND DRESSED ORDERED.
[2020-06-17 08:00] VITALS: BP 108/74
--- NOTE | 2020-06-17 08:11 | NUR ---
IN TO SEE PATIENT.
--- NOTE | 2020-06-17 09:00 | NUR ---
OT NOTE Pt was laying supine in bed with head elevated agreeable to 10 minute OT session. Prior to OT session pt was able to state NWB precautions. Identified by name and date of with no complaints to date. Transfer supine to EOB SBA. Sit-stand CGA with w/w for UB support. Functional mobility from EOB to bathroom SBA with w/w. Transferring on and off elevated commode SBA with grab bar and w/w. Functional mobility from bathroom to hallway, back to EOB SBA with w/w. Pt was able to tolerate approx 5 minutes of activity without fatigue. Throughout OT session pt was 75% NWB. Pt was able to position self in bed at SBA. Pt left in bed with alamr active and call light in reach. Continue d/c refer to POC. MOHIT Vivas/LILIANA Cartagena/Carlos Alberto
--- NOTE | 2020-06-17 09:00 | NUR ---
case management visits with patient, he states he hoping to be discharged to home today, he stated he has 2 walkers at home to use, educated him that case management will notify [facility] when he is discharged, patient stated he will have a ride upon discharge
--- NOTE | 2020-06-17 09:18 | NUR ---
PT MEDICATED WITH PO NORCO PER PRN ORDER FOR C/O LEFT KNEE PAIN. RATES PAIN 04/23. WILL MONITOR EFFECTIVENESS.
--- NOTE | 2020-06-17 10:10 | NUR ---
PHYSICAL THERAPY TREATMENT TIEM: IN 08:53 AM 21 MINUTES TOTAL PRESENTATION: Patient was in supine in bed Head of bed elevated Bed alarm off No spO2 No IVs NWB on the L LE Knee immobilizer if patient feels that he needs it COMPLAINTS: No pain in ribs or L LE 0/10 PAIN LEVEL TRANSFERS: Supine to sitting on EOB: SBA Sitting on EOB: SBA STS from EOB: SBA-CGA STS from Commode: SBA-CGA Sit EOB to supine in bed: SBA TREATMENT: NWB on L LE GAIT with Wh Walker and CGA for 105' x 1 RESPONSE TO TREATMENT: Patient tolerated treatment well overall with no increased pain Patient did maintain his NWB STATUS ON HIS l le AT LEAST 80% OF THE TIME DURING GAIT. Patient required verbal cues for proper NWB technique. CONCLUSION: Patient was left in supine in bed with call light within reach. JACQUELINE PATEL FUGITIVE DETECTIVE
--- NOTE | 2020-06-17 10:18 | NUR ---
NORCO RELIEVING PAIN PER PT. WILL CONTINUE TO MONITOR.
[2020-06-17 12:00] VITALS: BP 125/77
--- NOTE | 2020-06-17 14:04 | NUR ---
PHYSICAL THERAPY TREATMENT TIME: OUT 02:03 PM 15 MINUTES TOTAL PRESENTATION: Patient was supine in bed this afternoon with head of bed eelvated. Bed alarm off Patient is eager to participate in therapy. NWB on L LE COMPLAINTS: No significant pain level TRANSFERS: Supine to sitting on EOB: Supervision Sitting on EOB: Supervision STS from EOB: Supervision NWB on L LE Patient has knee immobilizer that he refuses to wear at this time STS from commode: SBA Transfer back ot supine in bed from sitting EOB: Supervision TREATMENT: GAIT with Wh Walker and Close Supervision for 115' x 1 Patient did maintain NWB status on the L LE RESPONSE TO TREATMENT: Patient had no increased pain in the L LE or the ribs post ambulating and transfers. Patient demonstrated good endurance and good gait sequence with Wh Walker. Patient maintains NWB status on L LE with gait. CONCLUSION: Patient was left supine in bed with head of bed elevated Call light within reach Tray table near patient JACQUELINE PATEL ORACLE SOA DEVELOPER
--- NOTE | 2020-06-17 14:05 | NUR ---
OT NOTE Pt was seen this P.M. 1:1 for second OT session consisting of 15 minutes. Upon arrival pt was supine in bed. Pt identified by name and and had complaints of resting 1-2/10 B rib and L knee pain and 3-4/10 with activity. Pt was able to self verbalize NWB to LLE. Pt transferred supine to sit EOB with SBA. Functional mobility completed to the bathroom and back with CGA and use of w/w for UE support. Throughout mobility pt required constant verbal prompts for following NWB to LLE due to pt being aprox 50% compliant throughout, pt continued to present with poor carry over. Once sitting EOB pt demonstrated use of lower body adaptive equipment including health and wellness coach, sock aid, and dressing stick. Pt presented with good carry over and recall by doffing and donning socks with SBA and use of adaptive equipment. Pt transferred back into bed sit to supine with SBA. There he was left with call light in hand, tray table in place, and bed alarm activated for safety. Continue with POC as able. LILIANA Hinojosa/Carlos Alberto
[2020-06-17] MEDS ORDERED: HYDROCODONE-AC1 EAC1 PO (15:16)
--- NOTE | 2020-06-17 15:47 | NUR ---
DISCHARGE PHOTOS NOT NEEDED AT THIS TIME. DISCHARGE PHOTOS WERE OBTAINED THIS MORNING AT 7AM.
--- NOTE | 2020-06-17 15:47 | NUR ---
Discharge instructions reviewed with patient/family. Patient receptive and verbalizes understanding. Follow-up care arranged. Written instructions given to patient/family. JAZ DE LUNA.
--- NOTE | 2020-06-18 07:33 | NUR ---
OCCUPATIONAL THERAPY CO-SIGN I approve of the Occupational Therapy notes written above. MELANY OLIVER, OTR/L
--- NOTE | 2020-06-18 07:58 | NUR ---
PHYSICAL THERAPY CO-SIGN I approve of the Physical Therapy notes written above. Latrice Ortiz PT
--- NOTE | 2020-06-18 08:28 | NUR ---
LOGISTICS OPERATIONS DIRECTOR RECEIVED CALL FROM [facility]. THERE IS NO HH CONSULT. LOGISTICS OPERATIONS DIRECTOR NOTIFIED RN HOSPITALIST COORDINATOR
--- NOTE | 2020-06-18 13:16 | NUR ---
HOT BRAIDER FAXED HH ORDER AND FACE TO FACE TO [facility].
--- NOTE | 2020-06-18 13:42 | NUR ---
Claudine mendoza [place] called and stated that after the peer to peer was completed, the denial was overturned and will be approved for a 3 day medical stay. approval number is [id number]
== END 2020-06-17 15:47 | disposition home or self-care (01) | DRG 135 ==
LOC: ED 10:53 → 4E 16:32 → EDHOLD 16:32 → 4E 17:56
PROVIDERS: Internal Medicine; ADMIT Internal Medicine; ATTEND Internal Medicine
DX: S22.43XA Multiple fractures of ribs, bilateral, initial encounter for closed fracture (principal); S82.142A Displaced bicondylar fracture of left tibia, initial encounter for closed fracture; J44.9 Chronic obstructive pulmonary disease, unspecified; F32.9 Major depressive disorder, single episode, unspecified; E78.5 Hyperlipidemia, unspecified; I10 Essential (primary) hypertension; I25.10 Atherosclerotic heart disease of native coronary artery without angina pectoris; F17.210 Nicotine dependence, cigarettes, uncomplicated; E11.69 Type 2 diabetes mellitus with other specified complication; E44.0 Moderate protein-calorie malnutrition; M17.12 Unilateral primary osteoarthritis, left knee; W11.XXXA Fall on and from ladder, initial encounter; Y93.89 Activity, other specified; Y92.89 Other specified places as the place of occurrence of the external cause; Y99.8 Other external cause status; Z71.6 Tobacco abuse counseling; I25.2 Old myocardial infarction; Z79.82 Long term (current) use of aspirin; Z79.899 Other long term (current) drug therapy; Z83.3 Family history of diabetes mellitus; Z79.84 Long term (current) use of oral hypoglycemic drugs; Z68.28 Body mass index [BMI] 28.0-28.9, adult

== ENCOUNTER → 2020-06-23 | Outpatient (CLI) | payer OTHER ==
[~2020-06-23] MED LIST changes: +ADDERALL 10 MG10 MG PO; +ASPIRIN CHEWABL81 MG PO; +CHILDREN'S CLEA10 MG PO; +COQ-10100 MG PO; +FLUTICASONE PRO15 G1 T; +FUROSEMIDE20 M1 PO; +HYDROCODONE-AC1 EAC1 PO; +JARDIANCE25 MG PO; +LISINOPRIL2.5 MG PO; +NORCO 5-325 TA1 EACH PO; +OZEMPIC1 MG/0.75 SQ; +PAROXETINE10 MG PO; +POTASSIUM CHLO10 MEQ PO; +ROSUVASTATIN CA40 MG PO; +SUPER-D3+ SOFT1 EACH PO; +TOPROL XL25 MG PO; +VENT7GM INH; +ZETIA10 MG PO
== END | disposition home or self-care (01) ==
LOC: ORTHO 00:41
PROVIDERS: ATTEND Psychiatry & Neurology Psychiatry
DX: S82.142A Displaced bicondylar fracture of left tibia, initial encounter for closed fracture (principal); M25.462 Effusion, left knee; X58.XXXA Exposure to other specified factors, initial encounter; Y93.89 Activity, other specified; Y92.89 Other specified places as the place of occurrence of the external cause; Y99.8 Other external cause status

== ENCOUNTER → 2020-07-07 | Outpatient (CLI) | payer OTHER | END | disposition home or self-care (01) | LOC: ORTHO 10:04 | PROVIDERS: ATTEND Psychiatry & Neurology Psychiatry | DX: S82.145A Nondisplaced bicondylar fracture of left tibia, initial encounter for closed fracture (principal); X58.XXXA Exposure to other specified factors, initial encounter; Y93.89 Activity, other specified; Y92.89 Other specified places as the place of occurrence of the external cause; Y99.8 Other external cause status ==

== ENCOUNTER → 2020-07-13 | Outpatient (CLI) | payer OTHER | END | disposition home or self-care (01) | LOC: RESCLI 08:29 | PROVIDERS: ATTEND Student in an Organized Health Care Education/Training Program | DX: E11.8 Type 2 diabetes mellitus with unspecified complications (principal); E78.5 Hyperlipidemia, unspecified; S82.142D Displaced bicondylar fracture of left tibia, subsequent encounter for closed fracture with routine healing; I25.2 Old myocardial infarction; I10 Essential (primary) hypertension; I25.10 Atherosclerotic heart disease of native coronary artery without angina pectoris; R05 Cough; J44.9 Chronic obstructive pulmonary disease, unspecified; F32.9 Major depressive disorder, single episode, unspecified; E55.9 Vitamin D deficiency, unspecified; R60.9 Edema, unspecified; Z71.6 Tobacco abuse counseling; Z79.899 Other long term (current) drug therapy; Z98.890 Other specified postprocedural states; X58.XXXD Exposure to other specified factors, subsequent encounter ==

== ENCOUNTER → 2020-07-22 | Outpatient (CLI) | payer OTHER | END | disposition home or self-care (01) | LOC: CARD 12:49 | PROVIDERS: ATTEND Internal Medicine | DX: R60.9 Edema, unspecified (principal) ==

== ENCOUNTER → 2020-07-28 | Outpatient (CLI) | payer OTHER | END | disposition home or self-care (01) | LOC: ORTHO 00:29 | PROVIDERS: ATTEND Orthopaedic Surgery | DX: S82.142D Displaced bicondylar fracture of left tibia, subsequent encounter for closed fracture with routine healing (principal); M17.12 Unilateral primary osteoarthritis, left knee; M25.462 Effusion, left knee; X58.XXXD Exposure to other specified factors, subsequent encounter ==

== ENCOUNTER → 2020-08-17 | Outpatient (CLI) | payer OTHER ==
[2020-08-17 12:33] LABS: BILIRUBIN Negative (Negative); BLOOD Negative (Negative); CLARITY Clear (Clear); COLOR Yellow (Yellow); GLUCOSE 3+ (Negative); KETONE Negative (Negative); LEUKO ESTERASE Negative (Negative); NITRITE Negative (Negative); SPECIFIC GRAVITY 1.015 (1.001-1.030); UROBILINOGEN 0.2 E.U./dl (0.0-1.0)
[2020-08-17 13:05] LABS: ALBUMIN 3.1 gm/dl (3.1-4.5); ALKALINE PHOSPHATASE 102 U/L (45-117); BILIRUBIN, DIRECT < 0.1 mg/dL (0.0-0.2); BUN 12 mg/dl (7-24); CHLORIDE 104 mmol/L (98-107); CHOLESTEROL 276 mg/dL (<200); CREATININE 0.78 mg/dL (0.70-1.30); HDL CHOLESTEROL 44 mg/dl (40-60); LDL CHOLESTEROL 204 mg/dL (9-159); POTASSIUM 4.1 mmol/L (3.5-5.1); SGOT/AST 13 IU/L (3-35); SGPT/ALT 24 U/L (12-78); SODIUM 139 mmol/L (136-145); TOTAL PROTEIN 6.6 gm/dL (6.4-8.2); TRIGLYCERIDES 139 mg/dl (<150); VLDL CHOLESTEROL 28 mg/dL (6-40)
== END | disposition home or self-care (01) ==
LOC: LAB 12:01
PROVIDERS: ATTEND Internal Medicine
DX: E11.40 Type 2 diabetes mellitus with diabetic neuropathy, unspecified (principal); N40.0 Benign prostatic hyperplasia without lower urinary tract symptoms; E55.9 Vitamin D deficiency, unspecified; E11.65 Type 2 diabetes mellitus with hyperglycemia; E78.5 Hyperlipidemia, unspecified

== ENCOUNTER → 2020-09-08 | Outpatient (CLI) | payer OTHER | END | disposition home or self-care (01) | LOC: ORTHO 09-07 07:46 | PROVIDERS: ATTEND Orthopaedic Surgery | DX: M25.462 Effusion, left knee (principal); S82.142D Displaced bicondylar fracture of left tibia, subsequent encounter for closed fracture with routine healing; X58.XXXD Exposure to other specified factors, subsequent encounter ==

== ENCOUNTER → 2020-11-17 | Outpatient (CLI) | payer OTHER ==
[2020-11-17 10:29] LABS: BILIRUBIN Negative (Negative); BLOOD Negative (Negative); CLARITY Clear (Clear); COLOR Yellow (Yellow); GLUCOSE 2+ (Negative); KETONE Negative (Negative); LEUKO ESTERASE Negative (Negative); NITRITE Negative (Negative); UROBILINOGEN 0.2 E.U./dl (0.0-1.0)
[2020-11-17 10:34] LABS: ALBUMIN 3.5 gm/dl (3.1-4.5); ALKALINE PHOSPHATASE 111 U/L (45-117); BILIRUBIN, DIRECT < 0.1 mg/dL (0.0-0.2); BUN 14 mg/dl (7-24); CHLORIDE 105 mmol/L (98-107); CHOLESTEROL 293 mg/dL (<200); CREATININE 0.86 mg/dL (0.70-1.30); HDL CHOLESTEROL 46 mg/dl (40-60); LDL CHOLESTEROL 212 mg/dL (9-159); POTASSIUM 4.3 mmol/L (3.5-5.1); SGOT/AST 21 IU/L (3-35); SGPT/ALT 36 U/L (12-78); SODIUM 137 mmol/L (136-145); TOTAL PROTEIN 7.1 gm/dL (6.4-8.2); TRIGLYCERIDES 177 mg/dl (<150); VLDL CHOLESTEROL 35 mg/dL (6-40)
[2020-11-17 10:53] LABS: RBC 0-2 rbc/hpf (0-2); WBC 0-2 wbc/hpf (0-5)
[2020-11-17 11:20] LABS: VITAMIN D, 25-HYDROXY 22.8 ng/mL (30-100)
== END | disposition home or self-care (01) ==
LOC: LAB 09:41
PROVIDERS: ATTEND Internal Medicine
DX: E11.65 Type 2 diabetes mellitus with hyperglycemia (principal); E11.40 Type 2 diabetes mellitus with diabetic neuropathy, unspecified; E55.9 Vitamin D deficiency, unspecified; E29.1 Testicular hypofunction

== ENCOUNTER → 2021-02-17 | Outpatient (CLI) | payer OTHER ==
[2021-02-17 10:10] LABS: BILIRUBIN Negative (Negative); BLOOD Negative (Negative); CLARITY Clear (Clear); COLOR Yellow (Yellow); GLUCOSE 3+ (Negative); KETONE Negative (Negative); LEUKO ESTERASE Negative (Negative); NITRITE Negative (Negative); SPECIFIC GRAVITY >= 1.030 (1.001-1.030); UROBILINOGEN 0.2 E.U./dl (0.0-1.0)
[2021-02-17 10:19] LABS: EPITHELIAL CELLS 0-2; RBC 0-2 rbc/hpf (0-2); WBC 0-2 wbc/hpf (0-5)
[2021-02-17 10:20] LABS: BACTERIA TRACE
[2021-02-17 10:32] LABS: ALBUMIN 3.7 gm/dl (3.1-4.5); ALKALINE PHOSPHATASE 103 U/L (45-117); BILIRUBIN, DIRECT < 0.1 mg/dL (0.0-0.2); BUN 13 mg/dl (7-24); CHLORIDE 107 mmol/L (98-107); CHOLESTEROL 96 mg/dL (<200); CREATININE 0.84 mg/dL (0.70-1.30); LDL CHOLESTEROL 31 mg/dL (9-159); POTASSIUM 4.2 mmol/L (3.5-5.1); SGOT/AST 15 IU/L (3-35); SGPT/ALT 33 U/L (12-78); SODIUM 139 mmol/L (136-145); TOTAL PROTEIN 7.1 gm/dL (6.4-8.2); TRIGLYCERIDES 76 mg/dl (<150)
== END | disposition home or self-care (01) ==
LOC: LAB 09:16
PROVIDERS: ATTEND Internal Medicine
DX: E11.65 Type 2 diabetes mellitus with hyperglycemia (principal); E78.5 Hyperlipidemia, unspecified; E55.9 Vitamin D deficiency, unspecified; E11.40 Type 2 diabetes mellitus with diabetic neuropathy, unspecified; N40.0 Benign prostatic hyperplasia without lower urinary tract symptoms

== ENCOUNTER → 2021-08-10 | Outpatient (CLI) | payer OTHER ==
[2021-08-10 13:10] LABS: BILIRUBIN Negative (Negative); BLOOD Negative (Negative); CLARITY Clear (Clear); COLOR Yellow (Yellow); GLUCOSE Trace (Negative); KETONE Negative (Negative); LEUKO ESTERASE Negative (Negative); NITRITE Negative (Negative); UROBILINOGEN 0.2 E.U./dl (0.0-1.0)
[2021-08-10 13:21] LABS: EPITHELIAL CELLS 0-2; WBC 0-2 wbc/hpf (0-5)
[2021-08-10 13:26] LABS: ALBUMIN 3.3 gm/dl (3.1-4.5); ALKALINE PHOSPHATASE 76 U/L (45-117); BUN 11 mg/dl (7-24); CHLORIDE 107 mmol/L (98-107); CHOLESTEROL 148 mg/dL (<200); CREATININE 0.73 mg/dL (0.70-1.30); LDL CHOLESTEROL 79 mg/dL (9-159); POTASSIUM 4.4 mmol/L (3.5-5.1); SGOT/AST 14 IU/L (3-35); SGPT/ALT 25 U/L (12-78); SODIUM 140 mmol/L (136-145); TOTAL PROTEIN 6.7 gm/dL (6.4-8.2); TRIGLYCERIDES 79 mg/dl (<150)
[2021-08-10 14:01] LABS: VITAMIN D, 25-HYDROXY 43.1 ng/mL (30-100)
== END | disposition home or self-care (01) ==
LOC: LAB 12:34
PROVIDERS: ATTEND Internal Medicine
DX: E78.5 Hyperlipidemia, unspecified (principal); E29.1 Testicular hypofunction; E11.65 Type 2 diabetes mellitus with hyperglycemia; E55.9 Vitamin D deficiency, unspecified; N40.0 Benign prostatic hyperplasia without lower urinary tract symptoms

== ENCOUNTER → 2022-01-06 | Outpatient (CLI) | payer OTHER ==
[2022-01-06 09:55] LABS: BILIRUBIN Negative (Negative); BLOOD Negative (Negative); CLARITY Clear (Clear); COLOR Yellow (Yellow); GLUCOSE Trace (Negative); KETONE Negative (Negative); LEUKO ESTERASE Negative (Negative); NITRITE Negative (Negative); SPECIFIC GRAVITY 1.015 (1.001-1.030)
[2022-01-06 10:06] LABS: MUCOUS TRACE; RBC 0-2 rbc/hpf (0-2)
[2022-01-06 10:16] LABS: ALKALINE PHOSPHATASE 82 U/L (45-117); BUN 10 mg/dl (7-24); CHLORIDE 106 mmol/L (98-107); CHOLESTEROL 158 mg/dL (<200); CREATININE 0.84 mg/dL (0.70-1.30); LDL CHOLESTEROL 95 mg/dL (9-159); POTASSIUM 4.7 mmol/L (3.5-5.1); SGOT/AST 19 IU/L (3-35); SGPT/ALT 33 U/L (12-78); SODIUM 138 mmol/L (136-145); TOTAL PROTEIN 6.8 gm/dL (6.4-8.2); TRIGLYCERIDES 88 mg/dl (<150)
[2022-01-06 11:09] LABS: VITAMIN D, 25-HYDROXY 31.5 ng/mL (30-100)
== END | disposition home or self-care (01) ==
LOC: LAB 09:36
PROVIDERS: ATTEND Internal Medicine
DX: E11.65 Type 2 diabetes mellitus with hyperglycemia (principal); E11.40 Type 2 diabetes mellitus with diabetic neuropathy, unspecified; E55.9 Vitamin D deficiency, unspecified; N40.0 Benign prostatic hyperplasia without lower urinary tract symptoms; E29.1 Testicular hypofunction

== ENCOUNTER → 2022-09-22 | Outpatient (CLI) | payer OTHER ==
[2022-09-22 12:30] LABS: BILIRUBIN Negative (Negative); BLOOD Negative (Negative); CLARITY Clear (Clear); COLOR Yellow (Yellow); GLUCOSE 3+ (Negative); KETONE Trace (Negative); LEUKO ESTERASE Negative (Negative); NITRITE Negative (Negative); PH 5.5 (4.5-8.0); SPECIFIC GRAVITY >= 1.030 (1.001-1.030); UROBILINOGEN 0.2 E.U./dl (0.0-1.0)
[2022-09-22 12:50] LABS: EPITHELIAL CELLS 0-2; MUCOUS TRACE; RBC 0-2 rbc/hpf (0-2)
[2022-09-22 12:51] LABS: ALKALINE PHOSPHATASE 82 U/L (46-116); BUN 11 mg/dl (9-23); CHLORIDE 105 mmol/L (98-107); CHOLESTEROL 192 mg/dL (<200); CREATININE 0.77 mg/dL (0.70-1.30); LDL CHOLESTEROL 121 mg/dL (9-159); POTASSIUM 4.1 mmol/L (3.4-5.1); SGPT/ALT 24 U/L (10-49); SODIUM 138 mmol/L (136-145); TOTAL PROTEIN 6.6 gm/dL (6.0-8.0); TRIGLYCERIDES 151 mg/dl (<150)
== END | disposition home or self-care (01) ==
LOC: LAB 11:42
PROVIDERS: ATTEND Internal Medicine
DX: N40.0 Benign prostatic hyperplasia without lower urinary tract symptoms (principal); E11.65 Type 2 diabetes mellitus with hyperglycemia; E11.40 Type 2 diabetes mellitus with diabetic neuropathy, unspecified; E55.9 Vitamin D deficiency, unspecified; E78.5 Hyperlipidemia, unspecified

== ENCOUNTER → 2023-06-01 | Outpatient (CLI) | payer OTHER ==
[2023-06-01 11:17] LABS: BILIRUBIN Negative (Negative); BLOOD Negative (Negative); CLARITY Clear (Clear); COLOR Yellow (Yellow); GLUCOSE 3+ (Negative); KETONE Trace (Negative); LEUKO ESTERASE Negative (Negative); NITRITE Negative (Negative); SPECIFIC GRAVITY >= 1.030 (1.001-1.030)
[2023-06-01 11:40] LABS: ALKALINE PHOSPHATASE 98 U/L (46-116); BUN 10 mg/dl (9-23); CHLORIDE 100 mmol/L (98-107); CHOLESTEROL 240 mg/dL (<200); LDL CHOLESTEROL 160 mg/dL (9-159); POTASSIUM 4.7 mmol/L (3.4-5.1); SGPT/ALT 20 U/L (10-49); TOTAL PROTEIN 6.8 gm/dL (6.0-8.0); TRIGLYCERIDES 168 mg/dl (<150)
[2023-06-01 11:41] LABS: WBC 0-2 wbc/hpf (0-5)
[2023-06-01 11:44] LABS: VITAMIN D, 25-HYDROXY 36.7 ng/mL (30-100)
== END | disposition home or self-care (01) ==
LOC: LAB 10:45
PROVIDERS: ATTEND Internal Medicine
DX: E29.1 Testicular hypofunction (principal); E11.65 Type 2 diabetes mellitus with hyperglycemia; E11.40 Type 2 diabetes mellitus with diabetic neuropathy, unspecified; E55.9 Vitamin D deficiency, unspecified; N40.0 Benign prostatic hyperplasia without lower urinary tract symptoms; E78.5 Hyperlipidemia, unspecified

== ENCOUNTER 2024-02-15 09:31 | Emergency (ER) | payer OTHER ==
[~2024-02-15] VITALS: Ht 177.8 cm; Wt 95.3 kg
[2024-02-15] MEDS ORDERED: ACETAMINOPHEN 325 MG TAB PO ONE (10:40)
== END 2024-02-15 11:42 | disposition home or self-care (01) ==
LOC: ED 09:31
DX: M25.512 Pain in left shoulder (principal); R07.81 Pleurodynia; M25.561 Pain in right knee; I25.2 Old myocardial infarction; E11.9 Type 2 diabetes mellitus without complications; Z95.5 Presence of coronary angioplasty implant and graft; Z98.890 Other specified postprocedural states; F17.210 Nicotine dependence, cigarettes, uncomplicated; V89.2XXA Person injured in unspecified motor-vehicle accident, traffic, initial encounter; Y93.89 Activity, other specified; Y92.410 Unspecified street and highway as the place of occurrence of the external cause; Y99.8 Other external cause status

== ENCOUNTER → 2024-04-12 | Outpatient (CLI) | payer OTHER ==
[2024-04-12 09:34] LABS: BILIRUBIN Negative (Negative); BLOOD Negative (Negative); CLARITY Clear (Clear); COLOR Yellow (Yellow); GLUCOSE 3+ (Negative); KETONE Negative (Negative); LEUKO ESTERASE Negative (Negative); NITRITE Negative (Negative); SPECIFIC GRAVITY >= 1.030 (1.001-1.030); UROBILINOGEN 0.2 E.U./dl (0.0-1.0)
[2024-04-12 10:25] LABS: ALKALINE PHOSPHATASE 143 U/L (46-116); BUN 13 mg/dl (9-23); CHLORIDE 104 mmol/L (98-107); CHOLESTEROL 252 mg/dL (<200); LDL CHOLESTEROL 154 mg/dL (9-159); POTASSIUM 4.4 mmol/L (3.4-5.1); SGPT/ALT 24 U/L (5-49); TOTAL PROTEIN 6.5 gm/dL (6.0-8.0); TRIGLYCERIDES 305 mg/dl (<150)
[2024-04-12 10:26] LABS: BACTERIA TRACE; RBC 0-2 rbc/hpf (0-2); WBC 0-2 wbc/hpf (0-5)
[2024-04-12 10:36] LABS: VITAMIN D, 25-HYDROXY 30.6 ng/mL (30-100)
== END ==
LOC: LAB 09:10
PROVIDERS: ATTEND Internal Medicine
DX: E11.65 Type 2 diabetes mellitus with hyperglycemia (principal); E11.40 Type 2 diabetes mellitus with diabetic neuropathy, unspecified; E78.5 Hyperlipidemia, unspecified; E55.9 Vitamin D deficiency, unspecified

== ENCOUNTER → 2024-07-17 | Outpatient (CLI) | payer OTHER ==
[2024-07-17 13:24] LABS: ALKALINE PHOSPHATASE 115 U/L (46-116); BILIRUBIN Negative (Negative); BLOOD Negative (Negative); BUN 8 mg/dl (9-23); CHLORIDE 100 mmol/L (98-107); CHOLESTEROL 254 mg/dL (<200); CLARITY Clear (Clear); COLOR Yellow (Yellow); GLUCOSE 3+ (Negative); KETONE Trace (Negative); LDL CHOLESTEROL 177 mg/dL (9-159); LEUKO ESTERASE Negative (Negative); NITRITE Negative (Negative); POTASSIUM 4.2 mmol/L (3.4-5.1); SGPT/ALT 21 U/L (5-49); SPECIFIC GRAVITY >= 1.030 (1.001-1.030); TOTAL PROTEIN 6.9 gm/dL (6.0-8.0); TRIGLYCERIDES 165 mg/dl (<150); UROBILINOGEN 0.2 E.U./dl (0.0-1.0)
[2024-07-17 13:29] LABS: VITAMIN D, 25-HYDROXY 37.6 ng/mL (30-100)
[2024-07-17 13:31] LABS: EPITHELIAL CELLS 0-2; MUCOUS TRACE; WBC 0-2 wbc/hpf (0-5)
[2024-07-17 13:32] LABS: HYALINE CAST 0-2
== END | disposition home or self-care (01) ==
LOC: LAB 12:26
PROVIDERS: ATTEND Internal Medicine
DX: E29.1 Testicular hypofunction (principal); E11.65 Type 2 diabetes mellitus with hyperglycemia; E55.9 Vitamin D deficiency, unspecified; E11.40 Type 2 diabetes mellitus with diabetic neuropathy, unspecified; N40.0 Benign prostatic hyperplasia without lower urinary tract symptoms

== ENCOUNTER → 2024-12-13 | Outpatient (CLI) | payer OTHER ==
[2024-12-13 08:21] LABS: BILIRUBIN Negative (Negative); BLOOD Negative (Negative); CLARITY Clear (Clear); COLOR Dark Yellow (Yellow); GLUCOSE 3+ (Negative); KETONE Trace (Negative); LEUKO ESTERASE Negative (Negative); NITRITE Negative (Negative); SPECIFIC GRAVITY >= 1.030 (1.001-1.030)
[2024-12-13 08:24] LABS: ALKALINE PHOSPHATASE 96 U/L (46-116); BUN 9 mg/dl (9-23); CHLORIDE 101 mmol/L (98-107); CHOLESTEROL 278 mg/dL (<200); LDL CHOLESTEROL 197 mg/dL (9-159); POTASSIUM 4.3 mmol/L (3.4-5.1); SGPT/ALT 20 U/L (5-49); TOTAL PROTEIN 6.7 gm/dL (6.0-8.0); TRIGLYCERIDES 193 mg/dl (<150)
[2024-12-13 11:33] LABS: BACTERIA 1+; MUCOUS 2+
== END | disposition home or self-care (01) ==
LOC: LAB 07:39
PROVIDERS: ATTEND Internal Medicine
DX: E11.65 Type 2 diabetes mellitus with hyperglycemia (principal); E78.5 Hyperlipidemia, unspecified; E55.9 Vitamin D deficiency, unspecified; E11.40 Type 2 diabetes mellitus with diabetic neuropathy, unspecified; N40.0 Benign prostatic hyperplasia without lower urinary tract symptoms

== ENCOUNTER → 2025-02-16 | Outpatient (CLI) | payer OTHER ==
[2025-02-16 12:09] LABS: BASO # 0.1 10*3/uL (0.0-0.1); BASO % 0.7 % (0.0-1.0); EOS # 0.1 10*3/uL (0.0-0.4); EOS % 1.6 % (1.0-4.0); HEMATOCRIT 51.8 % (42.0-52.0); MEAN CELL VOLUME 90.2 fl (80.0-94.0); MEAN CORPUSCULAR HGB 28.4 pg (27.0-31.0); MEAN CORPUSCULAR HGB CONC 31.5 g/dl (33.0-37.0); MEAN PLATELET VOLUME 10.3 fl (9.6-12.3); MONO # 0.8 10*3/uL (0.1-1.0); MONO % 10.9 % (3.0-9.0); NEUT # 4.4 10*3/uL (2.3-7.9); NEUT % 62.6 % (47.0-73.0); PLATELET COUNT AUTOMATED 263 10*3/uL (130-400); RED BLOOD COUNT 5.74 10*6/uL (4.50-5.90)
[2025-02-16 12:10] LABS: BILIRUBIN Negative (Negative); BLOOD Negative (Negative); CLARITY Clear (Clear); COLOR Yellow (Yellow); GLUCOSE Negative (Negative); KETONE Trace (Negative); LEUKO ESTERASE Negative (Negative); NITRITE Negative (Negative); PH 5.5 (4.5-8.0)
[2025-02-16 12:17] LABS: MUCOUS TRACE
[2025-02-16 12:19] LABS: ACT PARTIAL THROMBO TIME 27.7 SECONDS (20.0-32.1)
[2025-02-16 12:43] LABS: BUN 14 mg/dl (9-23); CHLORIDE 101 mmol/L (98-107); POTASSIUM 4.1 mmol/L (3.4-5.1)
[2025-02-16 12:46] LABS: ALKALINE PHOSPHATASE 90 U/L (46-116); CHOLESTEROL 241 mg/dL (<200); LDL CHOLESTEROL 159 mg/dL (9-159); SGPT/ALT 20 U/L (5-49); TOTAL PROTEIN 7.5 gm/dL (6.0-8.0); TRIGLYCERIDES 197 mg/dl (<150)
[2025-02-16 12:49] LABS: VITAMIN D, 25-HYDROXY 66.4 ng/mL (30-100)
== END | disposition home or self-care (01) ==
LOC: LAB 11:40
PROVIDERS: Internal Medicine Cardiovascular Disease; ATTEND Internal Medicine
DX: Z01.818 Encounter for other preprocedural examination (principal); I25.10 Atherosclerotic heart disease of native coronary artery without angina pectoris; R94.39 Abnormal result of other cardiovascular function study

== ENCOUNTER 2025-02-27 14:07 | Emergency (ER) | payer OTHER ==
[~2025-02-27] VITALS: Ht 177.8 cm; Wt 96.6 kg
[2025-02-27 14:34] LABS: BASO # 0.1 10*3/uL (0.0-0.1); BASO % 0.3 % (0.0-1.0); EOS # 0.1 10*3/uL (0.0-0.4); EOS % 0.7 % (1.0-4.0); HEMATOCRIT 52.3 % (42.0-52.0); MEAN CELL VOLUME 91.3 fl (80.0-94.0); MEAN CORPUSCULAR HGB 28.8 pg (27.0-31.0); MEAN CORPUSCULAR HGB CONC 31.5 g/dl (33.0-37.0); MEAN PLATELET VOLUME 10.3 fl (9.6-12.3); MONO # 1.3 10*3/uL (0.1-1.0); MONO % 8.9 % (3.0-9.0); NEUT # 11.4 10*3/uL (2.3-7.9); NEUT % 79.6 % (47.0-73.0); PLATELET COUNT AUTOMATED 294 10*3/uL (130-400); RED BLOOD COUNT 5.73 10*6/uL (4.50-5.90); RED CELL DISTRI WIDTH 13.2 % (0-14.5); WHITE BLOOD COUNT 14.3 10*3/uL (4.8-10.8)
[2025-02-27 14:53] LABS: ALKALINE PHOSPHATASE 88 U/L (46-116); BUN 12 mg/dl (9-23); CHLORIDE 102 mmol/L (98-107); POTASSIUM 3.9 mmol/L (3.4-5.1); SGPT/ALT 17 U/L (5-49); TOTAL PROTEIN 7.5 gm/dL (6.0-8.0)
[2025-02-27 14:58] LABS: BILIRUBIN Negative (Negative); BLOOD Negative (Negative); CLARITY Clear (Clear); COLOR Yellow (Yellow); GLUCOSE Negative (Negative); KETONE Negative (Negative); LEUKO ESTERASE Negative (Negative); NITRITE Negative (Negative); UROBILINOGEN 0.2 E.U./dl (0.0-1.0)
[2025-02-27 14:59] LABS: ETHYL ALCOHOL < 3.0 mg/dl (<3)
[2025-02-27] MEDS ORDERED: LANTUS SOL100 UNIT/1 SC (15:03)
[2025-02-27] MEDS ORDERED: METFORMIN HYD1000 MG PO (15:03)
[2025-02-27] MEDS ORDERED: KLOR-CON M2020 ME1 PO (15:04)
[2025-02-27] MEDS ORDERED: GLIPIZIDE5 MG PO (15:04)
[2025-02-27] MEDS ORDERED: LASIX40 MG PO (15:04)
[2025-02-27] MEDS ORDERED: MOUNJARO12.5 MG/01 SQ (15:05)
[2025-02-27] MEDS ORDERED: IMDUR SA30 MG PO (15:05)
[2025-02-27] MEDS ORDERED: REPATHA SY140 MG/1 M SQ (15:05)
[2025-02-27 15:06] LABS: URINE AMPHETAMINES Negative (1000ng/ml); URINE BARBITURATES Negative (200ng/ml); URINE BENZODIAZEPINES Negative (200ng/ml); URINE CANNABINOIDS (THC) Positive (50ng/ml); URINE COCAINE Negative (300ng/ml); URINE METHADONE Negative (300ng/ml); URINE OPIATES Negative (300ng/ml); URINE PHENCYCLIDINE Negative (25ng/ml)
[2025-02-27 15:06] LABS: ACT PARTIAL THROMBO TIME 26.5 SECONDS (20.0-32.1)
[2025-02-27 15:18] LABS: BACTERIA TRACE; RBC 0-2 rbc/hpf (0-2); WBC 0-2 wbc/hpf (0-5)
== END 2025-02-27 16:40 | disposition home or self-care (01) ==
LOC: ED 14:07
PROVIDERS: Internal Medicine
DX: R55 Syncope and collapse (principal); E11.649 Type 2 diabetes mellitus with hypoglycemia without coma; F17.200 Nicotine dependence, unspecified, uncomplicated; Z79.4 Long term (current) use of insulin; Z79.899 Other long term (current) drug therapy; Z98.890 Other specified postprocedural states

== ENCOUNTER → 2025-07-10 | Outpatient (CLI) | payer OTHER ==
[~2025-07-10] MED LIST changes: +GLIPIZIDE5 MG PO; +IMDUR SA30 MG PO; +KLOR-CON M2020 ME1 PO; +LANTUS SOL100 UNIT/1 SC; +LASIX40 MG PO; +MOUNJARO12.5 MG/01 SQ; +REPATHA SY140 MG/1 M SQ
[2025-07-10 11:15] LABS: BILIRUBIN Negative (Negative); BLOOD Negative (Negative); CLARITY Clear (Clear); COLOR Yellow (Yellow); KETONE Negative (Negative); LEUKO ESTERASE Negative (Negative); NITRITE Negative (Negative); PH 5.0 (4.5-8.0); SPECIFIC GRAVITY >= 1.030 (1.001-1.030); UROBILINOGEN 0.2 E.U./dl (0.0-1.0)
[2025-07-10 11:35] LABS: BACTERIA TRACE; WBC 0-2 wbc/hpf (0-5)
[2025-07-10 11:46] LABS: BUN 11 mg/dl (9-23); LDL CHOLESTEROL 67 mg/dL (9-159); SGPT/ALT 30 U/L (5-49)
[2025-07-10 11:49] LABS: VITAMIN D, 25-HYDROXY 54.4 ng/mL (30-100)
== END | disposition home or self-care (01) ==
LOC: LAB 10:27
PROVIDERS: ATTEND Internal Medicine
DX: E11.65 Type 2 diabetes mellitus with hyperglycemia (principal); E11.40 Type 2 diabetes mellitus with diabetic neuropathy, unspecified; E78.5 Hyperlipidemia, unspecified; E55.9 Vitamin D deficiency, unspecified; N40.0 Benign prostatic hyperplasia without lower urinary tract symptoms